=== PATIENT | male | born 1950 | race Caucasian/White ===

== ENCOUNTER 2020-04-08 06:42 | Inpatient (IN) ==
[2020-04-08] MEDS ORDERED: ISOVUE-370 200 ML INFUS..BTL ONE ×2 (07:07→08:54)
[2020-04-08] MEDS ORDERED: Nitroglycerin 1,000 MCG/10 ML VIAL IV ONE (07:07)
[2020-04-08] MEDS ORDERED: 0.9 % Sodium Chloride 1,000 ML ONE (07:07)
[2020-04-08] MEDS ORDERED: *HR* Heparin 10,000 UNIT/10 ML VIAL ONE (07:07)
[2020-04-08] MEDS ORDERED: Heparin 1,000 UNITS/500 mL 500 ML ONE (07:07)
[2020-04-08] MEDS: 0.9 % Sodium Chloride 1,000 ML IVC SCH (07:47)
[2020-04-08] MEDS ORDERED: *HR* FentaNYL (PF) 100 MCG/2 ML VIAL ONE (08:00)
[2020-04-08] MEDS ORDERED: *HR* Midazolam HCl 2 MG/2 ML VIAL ONE (08:00)
[2020-04-08] MEDS ORDERED: *HR* Atropine Sulfate 1 MG/10 ML SYRINGE ONE (11:20)
[2020-04-08] MEDS ORDERED: Ondansetron 4 MG/2 ML VIAL ONE (11:38)
[2020-04-08] MEDS: Ondansetron 4 MG/2 ML VIAL IVP ONE ×2 (11:40→11:46)
[2020-04-08] MEDS ORDERED: Acetaminophen 325 MG TABLET PO PRN (11:40)
[2020-04-08] MEDS ORDERED: Ondansetron 4 MG/2 ML VIAL IVP PRN (11:43)
[2020-04-08] MEDS ORDERED: Adenosine 90 MG/30 ML MLS IV ONE (11:48)
[2020-04-08] MEDS ORDERED: *HR* Heparin 5,000 UNIT/ML VIAL IVP PRN ×2 (12:02)
[2020-04-08] MEDS ORDERED: *HR* Heparin 5,000 UNIT/ML VIAL IVP ONE (12:02)
[2020-04-08 13:45] LABS: Hematocrit 44.2 % (37.5-50.1); Hemoglobin 14.8 g/dL (12.9-16.9); Mean Corpuscular HGB Conc 33.5 g/dL (31.6-35.5); Mean Corpuscular Volume 92.5 fL (83.0-100.0); Mean Platelet Volume 10.2 fL (9.4-12.4); Platelet Count 203 K/mcL (140-400); Red Blood Count 4.78 M/mcL (4.19-5.50); White Blood Count 7.5 K/mcL (4.3-11.1)
[2020-04-08 13:57] LABS: Heparin anti-factor XA UFH < 0.04 IU/mL (0.30-0.70); INR 1.1; Prothrombin Time 12.5 Seconds (9.4-12.1)
[2020-04-08] MEDS: Heparin 25,000UNIT/250ML 1/2NS 25,000 UNIT/250 ML IV.SOLN IVC SCH (14:04)
[2020-04-08] MEDS ORDERED: Isosorbide MONOnitrate (24 HR) 30 MG TAB.ER.24H PO SCH (21:00)
[2020-04-09 06:35] LABS: Basophils % 0.5 %; Eosinophils # 0.1 K/mcL (0.0-0.6); Hematocrit 42.3 % (37.5-50.1); Immature Granulocytes % 0.1 % (0-4); Lymphocytes # 2.5 K/mcL (0.6-4.6); Lymphocytes % 29.4 %; Mean Corpuscular HGB Conc 33.1 g/dL (31.6-35.5); Mean Corpuscular Hemoglobin 30.8 pg (28.0-33.3); Mean Platelet Volume 10.3 fL (9.4-12.4); Monocytes # 0.6 K/mcL (0.0-1.3); Monocytes % 6.5 %; Neutrophils # 5.4 K/mcL (1.6-8.9); Platelet Count 215 K/mcL (140-400); Red Blood Count 4.55 M/mcL (4.19-5.50); Red Cell Distribution Width 13.2 % (11.5-14.5); Segmented Neutrophils % 62.5 %; White Blood Count 8.6 K/mcL (4.3-11.1)
[2020-04-09 06:52] LABS: BUN/Creatinine Ratio 25 (6-26); Blood Urea Nitrogen 21 mg/dL (8-23); Calcium 9.1 mg/dL (8.6-10.3); Carbon Dioxide 23 mEq/L (23-29); Chloride 109 mEq/L (98-107); Glucose 117 mg/dL (70-105); Osmolality,Calculated 300 (280-300); Potassium 3.7 mEq/L (3.5-5.1); Sodium 143 mEq/L (136-145); eGFR For African Americans > 60 (> 60); eGFR For Non-African Americans > 60 (> 60)
[2020-04-09] MEDS: amLODIPine 5 MG TABLET PO SCH (08:12)
[2020-04-09] MEDS: Aspirin Enteric Coated 81 MG Tablet PO SCH (08:12)
[2020-04-09] MEDS: Metoprolol XL (24 HR) Succ 50 MG TAB.ER.24H PO SCH (08:12)
[2020-04-09] MEDS: Losartan/HCTZ 50-12.5 TABLET PO SCH (08:12)
[2020-04-09] MEDS: 0.9 % Sodium Chloride 1,000 ML IVC SCH (08:18)
[2020-04-09] MEDS: Heparin 25,000UNIT/250ML 1/2NS 25,000 UNIT/250 ML IV.SOLN IVC SCH (12:58)
[2020-04-09 16:36] LABS: Chol/HDL Ratio 5.1 (0-4.9)
[2020-04-09 17:39] LABS: Estimated Average Glucose 131 mg/dl; Hemoglobin A1C 6.2 %
[2020-04-09] MEDS ORDERED: Ipratropium/Albuterol Neb 3 ML IH PRN (18:50)
[2020-04-09] MEDS ORDERED: Nitroglycerin 0.4 MG TAB.SUBL SL PRN (18:51)
[2020-04-09] MEDS ORDERED: Melatonin 3 MG TABLET PO PRN (18:51)
[2020-04-09] MEDS: Isosorbide MONOnitrate (24 HR) 60 MG TAB.ER.24H PO SCH (19:51)
[2020-04-10 03:31] LABS: Hemoglobin 13.4 g/dL (12.9-16.9); Mean Corpuscular HGB Conc 33.5 g/dL (31.6-35.5); Mean Corpuscular Hemoglobin 30.9 pg (28.0-33.3); Mean Corpuscular Volume 92.2 fL (83.0-100.0); Mean Platelet Volume 10.6 fL (9.4-12.4); Platelet Count 201 K/mcL (140-400); Red Blood Count 4.34 M/mcL (4.19-5.50); White Blood Count 7.7 K/mcL (4.3-11.1)
[2020-04-10 03:43] LABS: BUN/Creatinine Ratio 27 (6-26); Blood Urea Nitrogen 21 mg/dL (8-23); Calcium 8.9 mg/dL (8.6-10.3); Carbon Dioxide 24 mEq/L (23-29); Chloride 107 mEq/L (98-107); Glucose 108 mg/dL (70-105); Magnesium 2.1 mg/dL (1.6-2.6); Osmolality,Calculated 298 (280-300); Phosphorous 2.9 mg/dL (2.7-4.5); Potassium 3.5 mEq/L (3.5-5.1); Sodium 142 mEq/L (136-145); eGFR For African Americans > 60 (> 60); eGFR For Non-African Americans > 60 (> 60)
[2020-04-10 03:56] LABS: Thyroid Stimulating Hormone 1.461 mcIU/mL (0.340-5.600)
[2020-04-10] MEDS: amLODIPine 5 MG TABLET PO SCH (08:15)
[2020-04-10] MEDS: Metoprolol XL (24 HR) Succ 50 MG TAB.ER.24H PO SCH (08:15)
[2020-04-10] MEDS: Aspirin Enteric Coated 81 MG Tablet PO SCH (08:15)
[2020-04-10] MEDS: Multivit/Ca/Min/Fe/FA 1 TAB TABLET PO SCH (08:15)
[2020-04-10] MEDS: Losartan/HCTZ 50-12.5 TABLET PO SCH (08:15)
[2020-04-10] MEDS: Heparin 25,000UNIT/250ML 1/2NS 25,000 UNIT/250 ML IV.SOLN IVC SCH (12:24)
[2020-04-10 16:02] LABS: Bilirubin,Urine Negative (Negative); Blood,Urine Negative (Negative); Clarity,Urine Clear (Clear); Color,Urine Yellow (Yellow); Glucose,Urine (UA) Normal (Normal); Ketones,Urine Negative (Negative); Leukocyte Esterase,Urine Negative (Negative); Nitrite,Urine Negative (Negative); PH,Urine 5.5 pH Units (5.0-8.0); Protein,Urine Trace mg/dL (Neg-Trace); Specific Gravity,Urine 1.029 (1.010-1.025)
[2020-04-10] MEDS: Isosorbide MONOnitrate (24 HR) 60 MG TAB.ER.24H PO SCH (20:02)
[2020-04-11] MEDS: Multivit/Ca/Min/Fe/FA 1 TAB TABLET PO SCH (08:27)
[2020-04-11] MEDS: Losartan/HCTZ 50-12.5 TABLET PO SCH (08:27)
[2020-04-11] MEDS: amLODIPine 5 MG TABLET PO SCH (08:28)
[2020-04-11] MEDS: Metoprolol XL (24 HR) Succ 50 MG TAB.ER.24H PO SCH (08:28)
[2020-04-11] MEDS: Aspirin Enteric Coated 81 MG Tablet PO SCH (08:28)
[2020-04-11] MEDS: Heparin 25,000UNIT/250ML 1/2NS 25,000 UNIT/250 ML IV.SOLN IVC SCH (09:58)
[2020-04-11] MEDS: hydrALAZINE 25 MG TABLET PO SCH (15:15)
[2020-04-11] MEDS: Isosorbide MONOnitrate (24 HR) 60 MG TAB.ER.24H PO SCH (20:04)
[2020-04-12] MEDS: hydrALAZINE 25 MG TABLET PO SCH ×3 (00:35→16:04)
[2020-04-12] MEDS: Multivit/Ca/Min/Fe/FA 1 TAB TABLET PO SCH (08:10)
[2020-04-12] MEDS: amLODIPine 5 MG TABLET PO SCH (08:10)
[2020-04-12] MEDS: Metoprolol XL (24 HR) Succ 50 MG TAB.ER.24H PO SCH (08:10)
[2020-04-12] MEDS: Aspirin Enteric Coated 81 MG Tablet PO SCH (08:11)
[2020-04-12] MEDS: Losartan/HCTZ 50-12.5 TABLET PO SCH (08:11)
[2020-04-12] MEDS: Heparin 25,000UNIT/250ML 1/2NS 25,000 UNIT/250 ML IV.SOLN IVC SCH (08:29)
[2020-04-12] MEDS: Chlorhexidine Rinse 15 ML MOUTHWASH MM SCH (21:00)
[2020-04-12] MEDS: Isosorbide MONOnitrate (24 HR) 60 MG TAB.ER.24H PO SCH (21:33)
[2020-04-13] MEDS: hydrALAZINE 25 MG TABLET PO SCH ×2 (00:16→12:34)
[2020-04-13 05:16] LABS: Influenza A PCR Negative (Negative); Influenza B PCR Negative (Negative); Resp. Syncytial Virus PCR Negative (Negative)
[2020-04-13 05:17] LABS: SARS-CoV-2 by PCR (In House) Negative (Negative)
[2020-04-13] MEDS: Chlorhexidine Rinse 15 ML MOUTHWASH MM SCH ×2 (06:13→19:56)
[2020-04-13] MEDS: Metoprolol XL (24 HR) Succ 50 MG TAB.ER.24H PO SCH (06:19)
[2020-04-13] MEDS ORDERED: NiCARdipine 2.5 MG/10 ML Syringe IVPB ONE (06:33)
[2020-04-13] MEDS ORDERED: *HR* Midazolam HCl 5 MG/5 ML VIAL IVP ONE (06:44)
[2020-04-13] MEDS ORDERED: *HR* FentaNYL (PF) 1,000 MCG/20 ML VIAL ONE (06:44)
[2020-04-13] MEDS ORDERED: *HR* PHENYLEPHRINE 1,000 MCG/10 ML SYRINGE IVP ONE (06:45)
[2020-04-13] MEDS ORDERED: *HR* Rocuronium Bromide 50 MG/5 ML VIAL ONE ×2 (06:45→10:56)
[2020-04-13] MEDS ORDERED: *HR* Etomidate 20 MG/10 ML AMPUL IVP ONE (06:46)
[2020-04-13] MEDS ORDERED: EPINEPHrine 1 MG/ML VIAL ONE (06:46)
[2020-04-13] MEDS ORDERED: Famotidine 20 MG/2 ML VIAL ONE (06:46)
[2020-04-13] MEDS ORDERED: Protamine Sulfate 250 MG/25 ML VIAL IVP ONE (06:48)
[2020-04-13] MEDS ORDERED: Calcium Gluconate 1,000 MG/10 ML VIAL ONE (06:48)
[2020-04-13] MEDS ORDERED: Tranexamic Acid 1,000 MG/10 ML VIAL ONE ×2 (06:48→09:29)
[2020-04-13] MEDS ORDERED: Dextrose 50 % in Water (Vial) 30 ML, Sodium Bicarbonate 20 MEQ, Potassium Chloride 15 M... TH ONE (07:45)
[2020-04-13] MEDS ORDERED: Norepinephrine 4 MG in 0.9 % Sodium Chloride 250 ML IVC PRN (07:45)
[2020-04-13] MEDS ORDERED: Dextrose 50 % in Water (Vial) 30 ML, Sodium Bicarbonate 20 MEQ, Lidocaine 1% 5 ML, Insu... TH ONE ×3 (07:45)
[2020-04-13] MEDS ORDERED: Insulin Human Regular 100 UNIT in 0.9 % Sodium Chloride 100 ML IV PRN (07:45)
[2020-04-13] MEDS ORDERED: Heparin 15,000 UNIT in 0.9 % Sodium Chloride 500 ML IV ONE (07:45)
[2020-04-13 08:14] LABS: ABG Base Excess -2 mEq/L (-2 to 3); ABG Chloride 106 mEq/L (98-107); ABG Glucose 113 mg/dL (60-95); ABG HCO3 23 mEq/L (21-27); ABG Ionized Calcium 1.21 mmol/L (1.15-1.35); ABG Oxygen Saturation 100 % (95-98); ABG PCO2 40 mmHg (35-45); ABG PH 7.37 pH Units (7.32-7.45); ABG PO2 186 mmHg (85-104); ABG TCO2 24 mEq/L (20-26)
[2020-04-13 09:25] LABS: ABG Base Excess -4 mEq/L (-2 to 3); ABG Chloride 109 mEq/L (98-107); ABG Glucose 119 mg/dL (60-95); ABG HCO3 23 mEq/L (21-27); ABG Ionized Calcium 1.09 mmol/L (1.15-1.35); ABG Oxygen Saturation 98 % (95-98); ABG PCO2 49 mmHg (35-45); ABG PH 7.29 pH Units (7.32-7.45); ABG PO2 125 mmHg (85-104); ABG TCO2 25 mEq/L (20-26)
[2020-04-13] MEDS ORDERED: Albumin Human 5% 12.5 GM/250 ML IV.SOLN ONE (09:35)
[2020-04-13 09:56] LABS: ABG Base Excess -4 mEq/L (-2 to 3); ABG Chloride 100 mEq/L (98-107); ABG Glucose 213 mg/dL (60-95); ABG HCO3 22 mEq/L (21-27); ABG Ionized Calcium 0.92 mmol/L (1.15-1.35); ABG PCO2 43 mmHg (35-45); ABG PH 7.32 pH Units (7.32-7.45); ABG PO2 > 630 mmHg (85-104); ABG TCO2 24 mEq/L (20-26)
[2020-04-13 10:30] LABS: ABG Base Excess -2 mEq/L (-2 to 3); ABG Chloride 101 mEq/L (98-107); ABG Glucose 180 mg/dL (60-95); ABG HCO3 23 mEq/L (21-27); ABG PCO2 39 mmHg (35-45); ABG PH 7.38 pH Units (7.32-7.45); ABG PO2 > 630 mmHg (85-104); ABG TCO2 24 mEq/L (20-26)
[2020-04-13 10:54] LABS: ABG Base Excess -3 mEq/L (-2 to 3); ABG Chloride 103 mEq/L (98-107); ABG Glucose 147 mg/dL (60-95); ABG HCO3 23 mEq/L (21-27); ABG Ionized Calcium 1.05 mmol/L (1.15-1.35); ABG Oxygen Saturation 100 % (95-98); ABG PCO2 41 mmHg (35-45); ABG PH 7.35 pH Units (7.32-7.45); ABG PO2 520 mmHg (85-104); ABG TCO2 24 mEq/L (20-26)
[2020-04-13] MEDS ORDERED: CeFAZolin Syr 2,000MG/20 ML 2,000 MG/20 ML SYRINGE IVPB ONE (11:00)
[2020-04-13 11:23] LABS: ABG Base Excess -4 mEq/L (-2 to 3); ABG Chloride 105 mEq/L (98-107); ABG Glucose 129 mg/dL (60-95); ABG HCO3 23 mEq/L (21-27); ABG Ionized Calcium 1.35 mmol/L (1.15-1.35); ABG Oxygen Saturation 97 % (95-98); ABG PCO2 48 mmHg (35-45); ABG PH 7.28 pH Units (7.32-7.45); ABG PO2 102 mmHg (85-104); ABG TCO2 24 mEq/L (20-26)
[2020-04-13] MEDS ORDERED: *HR* Dextrose 50 % in Water (Vial) 50 ML VIAL IVP PRN (11:29)
[2020-04-13] MEDS ORDERED: Potassium Chloride 40 MEQ/200 ML BAG IVPB PRN (11:29)
[2020-04-13] MEDS ORDERED: Insulin Regular, Human 100 UNIT/ML IV PRN (11:29)
[2020-04-13] MEDS ORDERED: Acetaminophen 650 MG RECTAL SUPP RC PRN (11:31)
[2020-04-13] MEDS: Norepinephrine 4 MG/254 ML IV.SOLN IVC SCH (12:00)
[2020-04-13] MEDS: Albumin Human 5% 12.5 GM/250 ML IV.SOLN IVPB PRN ×3 (12:00→12:46)
[2020-04-13 12:23] LABS: ABG Base Excess -2 mEq/L (-2 to 3); ABG HCO3 25 mEq/L (21-27); ABG Oxygen Saturation 96 % (95-98); ABG PCO2 50 mmHg (35-45); ABG PO2 95 mmHg (85-104); ABG TCO2 26 mEq/L (20-26); Blood Gas Modality ASSIST CONTROL; Blood Gas VT 650 cc
[2020-04-13 12:27] LABS: Basophils % 0.2 %; Eosinophils # 0.1 K/mcL (0.0-0.6); Eosinophils % 0.8 %; Hematocrit 32.8 % (37.5-50.1); Immature Granulocytes % 1.2 % (0-4); Lymphocytes # 1.8 K/mcL (0.6-4.6); Lymphocytes % 11.8 %; Mean Corpuscular HGB Conc 33.8 g/dL (31.6-35.5); Mean Corpuscular Hemoglobin 31.4 pg (28.0-33.3); Mean Corpuscular Volume 92.9 fL (83.0-100.0); Mean Platelet Volume 10.6 fL (9.4-12.4); Monocytes % 4.3 %; Neutrophils # 12.3 K/mcL (1.6-8.9); Platelet Count 105 K/mcL (140-400); Red Blood Count 3.53 M/mcL (4.19-5.50); Segmented Neutrophils % 81.7 %
[2020-04-13 12:28] LABS: Hemoglobin 11.1 g/dL (12.9-16.9); Monocytes # 0.7 K/mcL (0.0-1.3)
[2020-04-13] MEDS ORDERED: Albumin Human 5% 25.0 GM/500 ML IV.SOLN ONE (12:33)
[2020-04-13 12:34] LABS: INR 1.5; Prothrombin Time 17.3 Seconds (9.4-12.1)
[2020-04-13] MEDS: amLODIPine 5 MG TABLET PO SCH (12:34)
[2020-04-13] MEDS: Aspirin Enteric Coated 81 MG Tablet PO SCH (12:34)
[2020-04-13] MEDS: Losartan/HCTZ 50-12.5 TABLET PO SCH (12:35)
[2020-04-13] MEDS: Multivit/Ca/Min/Fe/FA 1 TAB TABLET PO SCH (12:36)
[2020-04-13 12:37] LABS: Activated Partial Thrombo Time 27.7 Seconds (26.0-36.0)
[2020-04-13 12:42] LABS: BUN/Creatinine Ratio 19 (6-26); Blood Urea Nitrogen 16 mg/dL (8-23); Calcium 8.5 mg/dL (8.6-10.3); Carbon Dioxide 25 mEq/L (23-29); Chloride 109 mEq/L (98-107); Glucose 87 mg/dL (70-105); Magnesium 2.6 mg/dL (1.6-2.6); Osmolality,Calculated 289 (280-300); Potassium 3.7 mEq/L (3.5-5.1); Sodium 139 mEq/L (136-145); eGFR For African Americans > 60 (> 60); eGFR For Non-African Americans > 60 (> 60)
[2020-04-13] MEDS ORDERED: *HR* Dextrose 50 % in Water (Vial) 50 ML VIAL ONE (12:58)
[2020-04-13] MEDS ORDERED: Calcium Gluconate 1gm/50mL 1 GM/50 ML BAG IVPB PRN (13:22)
[2020-04-13] MEDS: Insulin Human Regular 100 UNIT in 0.9 % Sodium Chloride 100 ML IVC SCH ×2 (13:23→15:00)
[2020-04-13] MEDS: niCARdipine 20 MG/200 ML MLS IVC SCH ×5 (13:24→22:54)
[2020-04-13] MEDS: 0.9 % Sodium Chloride w KCl 20 MEQ/1,000 ML MLS IVC SCH (13:31)
[2020-04-13] MEDS: Pantoprazole 40 MG VIAL IVP SCH (13:32)
[2020-04-13] MEDS: *HR* FentaNYL (PF) 100 MCG/2 ML VIAL IVP PRN ×3 (13:32→18:47)
[2020-04-13] MEDS: *HR* OxyCODONE/APAP 5/325 TABLET PO PRN ×2 (13:32→23:00)
[2020-04-13] MEDS: Metoclopramide 10 MG/2 ML VIAL IVP SCH ×3 (13:32→23:00)
[2020-04-13] MEDS: CeFAZolin 2 GM/120 ML BAG IVPB SCH ×2 (15:09→23:00)
[2020-04-13] MEDS ORDERED: Amiodarone Premix 360 MG/200 ML BAG IVC ONE (15:15)
[2020-04-13] MEDS ORDERED: Amiodarone Premix 150 MG/100 ML BAG IVPB ONE (15:15)
[2020-04-13 16:30] LABS: ABG Base Excess -4 mEq/L (-2 to 3); ABG HCO3 22 mEq/L (21-27); ABG Oxygen Saturation 89 % (95-98); ABG PCO2 46 mmHg (35-45); ABG PO2 62 mmHg (85-104); ABG TCO2 24 mEq/L (20-26); Blood Gas Modality CPAP/PS; Blood Gas Pressure Support 5 cm H2O
[2020-04-13] MEDS ORDERED: Tranexamic Acid 1,000 MG/10 ML VIAL IR ONE (16:36)
[2020-04-13] MEDS ORDERED: *HR* Magnesium Sulfate 2 GM/50 ML PIGGYBACK IVPB ONE (16:36)
[2020-04-13] MEDS ORDERED: Mannitol 25% vial 12.5 GM/50 ML VIAL IVPB ONE (16:36)
[2020-04-13] MEDS ORDERED: Albumin Human 25% 25 GM/100 ML IV.SOLN IVPB ONE (16:36)
[2020-04-13] MEDS ORDERED: Lidocaine 2% Syringe 100 MG/5 ML IVP ONE (16:36)
[2020-04-13] MEDS ORDERED: *HR* Heparin 10,000 UNIT/10 ML VIAL IR ONE (16:36)
[2020-04-13] MEDS ORDERED: *HR* Phenylephrine 10 MG/ML VIAL IVC ONE (16:36)
[2020-04-13] MEDS: Amiodarone Premix 360 MG/200 ML BAG IVC SCH (21:16)
[2020-04-14] MEDS: *HR* FentaNYL (PF) 100 MCG/2 ML VIAL IVP PRN ×4 (00:21→10:17)
[2020-04-14] MEDS: niCARdipine 20 MG/200 ML MLS IVC SCH ×6 (01:49→10:17)
[2020-04-14 03:16] LABS: Basophils % 0.1 %; Eosinophils % 0.1 %; Hemoglobin 11.1 g/dL (12.9-16.9); Immature Granulocytes % 0.4 % (0-4); Lymphocytes # 1.3 K/mcL (0.6-4.6); Lymphocytes % 8.9 %; Mean Corpuscular HGB Conc 33.6 g/dL (31.6-35.5); Mean Corpuscular Hemoglobin 31.1 pg (28.0-33.3); Mean Corpuscular Volume 92.4 fL (83.0-100.0); Mean Platelet Volume 10.3 fL (9.4-12.4); Monocytes # 1.3 K/mcL (0.0-1.3); Neutrophils # 11.6 K/mcL (1.6-8.9); Platelet Count 124 K/mcL (140-400); Red Blood Count 3.57 M/mcL (4.19-5.50); Red Cell Distribution Width 13.2 % (11.5-14.5); Segmented Neutrophils % 81.5 %; White Blood Count 14.2 K/mcL (4.3-11.1)
[2020-04-14 03:33] LABS: INR 1.2; Prothrombin Time 13.5 Seconds (9.4-12.1)
[2020-04-14 03:34] LABS: BUN/Creatinine Ratio 22 (6-26); Blood Urea Nitrogen 19 mg/dL (8-23); Calcium 8.3 mg/dL (8.6-10.3); Carbon Dioxide 20 mEq/L (23-29); Chloride 110 mEq/L (98-107); Glucose 151 mg/dL (70-105); Magnesium 2.1 mg/dL (1.6-2.6); Osmolality,Calculated 293 (280-300); Potassium 4.2 mEq/L (3.5-5.1); Sodium 139 mEq/L (136-145); eGFR For African Americans > 60 (> 60); eGFR For Non-African Americans > 60 (> 60)
[2020-04-14 03:36] LABS: Activated Partial Thrombo Time 25.6 Seconds (26.0-36.0)
[2020-04-14 05:03] LABS: ABG Base Excess -3 mEq/L (-2 to 3); ABG HCO3 23 mEq/L (21-27); ABG Oxygen Saturation 93 % (95-98); ABG PCO2 41 mmHg (35-45); ABG PH 7.35 pH Units (7.32-7.45); ABG PO2 69 mmHg (85-104); ABG TCO2 24 mEq/L (20-26)
[2020-04-14] MEDS: Metoclopramide 10 MG/2 ML VIAL IVP SCH ×4 (05:03→23:27)
[2020-04-14] MEDS: 0.9 % Sodium Chloride w KCl 20 MEQ/1,000 ML MLS IVC SCH (06:57)
[2020-04-14] MEDS ORDERED: *HR* Dextrose 50 % in Water (Vial) 50 ML VIAL IVP PRN (07:21)
[2020-04-14] MEDS ORDERED: D5% in Water 1,000 ML IVC PRN (07:21)
[2020-04-14] MEDS ORDERED: Dextrose Gel 15 GM/37.5 ML TUBE PO PRN ×2 (07:21)
[2020-04-14] MEDS: Insulin LISPRO 300 UNITS/3 ML VIAL SUBQ SCH ×4 (07:36→19:48)
[2020-04-14] MEDS ORDERED: Furosemide 20 MG/2 ML VIAL IVP ONE (07:37)
[2020-04-14] MEDS: Amiodarone Premix 360 MG/200 ML BAG IVC SCH ×3 (08:32→19:53)
[2020-04-14] MEDS ORDERED: Furosemide 20 MG/2 ML VIAL IVP SCH (09:00)
[2020-04-14] MEDS: Pantoprazole 40 MG VIAL IVP SCH (09:09)
[2020-04-14] MEDS: Multivit/Ca/Min/Fe/FA 1 TAB TABLET PO SCH (09:09)
[2020-04-14] MEDS: *HR* OxyCODONE/APAP 5/325 TABLET PO PRN ×3 (09:09→20:15)
[2020-04-14] MEDS: Chlorhexidine Rinse 15 ML MOUTHWASH MM SCH ×2 (09:09→19:54)
[2020-04-14] MEDS: Losartan/HCTZ 50-12.5 TABLET PO SCH (09:09)
[2020-04-14] MEDS: Aspirin Enteric Coated 81 MG Tablet PO SCH (09:09)
[2020-04-14] MEDS: Norepinephrine 4 MG/254 ML IV.SOLN IVC SCH (10:17)
[2020-04-14] MEDS ORDERED: Heparin 1,000 UNITS/500 mL 500 ML ONE (12:03)
[2020-04-14] MEDS ORDERED: Furosemide 40 MG/4 ML VIAL IVP ONE (13:55)
[2020-04-14] MEDS ORDERED: Furosemide 40 MG TABLET PO SCH (17:00)
[2020-04-14] MEDS: Furosemide 40 MG TABLET PO SCH (19:54)
[2020-04-15] MEDS: 0.9 % Sodium Chloride w KCl 20 MEQ/1,000 ML MLS IVC SCH (02:40)
[2020-04-15 03:44] LABS: Basophils % 0.1 %; Eosinophils % 0.1 %; Hematocrit 31.3 % (37.5-50.1); Hemoglobin 10.4 g/dL (12.9-16.9); Immature Granulocytes % 0.5 % (0-4); Lymphocytes # 1.6 K/mcL (0.6-4.6); Lymphocytes % 10.3 %; Mean Corpuscular HGB Conc 33.2 g/dL (31.6-35.5); Mean Corpuscular Hemoglobin 30.6 pg (28.0-33.3); Mean Corpuscular Volume 92.1 fL (83.0-100.0); Mean Platelet Volume 10.6 fL (9.4-12.4); Monocytes # 1.7 K/mcL (0.0-1.3); Monocytes % 10.7 %; Platelet Count 112 K/mcL (140-400); Red Cell Distribution Width 13.5 % (11.5-14.5); Segmented Neutrophils % 78.3 %; White Blood Count 15.4 K/mcL (4.3-11.1)
[2020-04-15 04:02] LABS: BUN/Creatinine Ratio 27 (6-26); Blood Urea Nitrogen 22 mg/dL (8-23); Calcium 8.4 mg/dL (8.6-10.3); Carbon Dioxide 22 mEq/L (23-29); Chloride 105 mEq/L (98-107); Glucose 159 mg/dL (70-105); Osmolality,Calculated 287 (280-300); Potassium 3.5 mEq/L (3.5-5.1); Sodium 135 mEq/L (136-145); eGFR For African Americans > 60 (> 60); eGFR For Non-African Americans > 60 (> 60)
[2020-04-15] MEDS: Metoclopramide 10 MG/2 ML VIAL IVP SCH ×4 (04:58→23:21)
[2020-04-15] MEDS: *HR* OxyCODONE/APAP 5/325 TABLET PO PRN ×3 (05:57→20:01)
[2020-04-15] MEDS: Amiodarone Premix 360 MG/200 ML BAG IVC SCH ×2 (05:58→17:18)
[2020-04-15 06:30] LABS: Magnesium 2.1 mg/dL (1.6-2.6); Phosphorous 2.2 mg/dL (2.7-4.5)
[2020-04-15] MEDS ORDERED: Amiodarone Premix 360 MG/200 ML BAG IVC SCH ×3 (07:17→13:49)
[2020-04-15] MEDS: Pantoprazole 40 MG VIAL IVP SCH (07:44)
[2020-04-15] MEDS: amLODIPine 5 MG TABLET PO SCH (07:44)
[2020-04-15] MEDS: Multivit/Ca/Min/Fe/FA 1 TAB TABLET PO SCH (07:45)
[2020-04-15] MEDS: Furosemide 40 MG TABLET PO SCH (07:45)
[2020-04-15] MEDS: Chlorhexidine Rinse 15 ML MOUTHWASH MM SCH ×2 (07:45→20:01)
[2020-04-15] MEDS: Losartan/HCTZ 50-12.5 TABLET PO SCH (07:45)
[2020-04-15] MEDS: Aspirin Enteric Coated 81 MG Tablet PO SCH (07:45)
[2020-04-15] MEDS: Insulin LISPRO 300 UNITS/3 ML VIAL SUBQ SCH ×4 (07:48→20:01)
[2020-04-15] MEDS: niCARdipine 20 MG/200 ML MLS IVC SCH ×6 (07:52→23:35)
[2020-04-15 07:59] LABS: ABG Base Excess -1 mEq/L (-2 to 3); ABG HCO3 23 mEq/L (21-27); ABG Oxygen Saturation 93 % (95-98); ABG PCO2 34 mmHg (35-45); ABG PH 7.44 pH Units (7.32-7.45); ABG PO2 63 mmHg (85-104); ABG TCO2 24 mEq/L (20-26)
[2020-04-15] MEDS: Norepinephrine 4 MG/254 ML IV.SOLN IVC SCH (12:14)
[2020-04-15 13:47] LABS: BUN/Creatinine Ratio 30 (6-26); Blood Urea Nitrogen 25 mg/dL (8-23); Calcium 8.6 mg/dL (8.6-10.3); Carbon Dioxide 23 mEq/L (23-29); Chloride 105 mEq/L (98-107); Glucose 172 mg/dL (70-105); Magnesium 2.3 mg/dL (1.6-2.6); Osmolality,Calculated 288 (280-300); Phosphorous 2.2 mg/dL (2.7-4.5); Potassium 3.8 mEq/L (3.5-5.1); Sodium 135 mEq/L (136-145); eGFR For African Americans > 60 (> 60); eGFR For Non-African Americans > 60 (> 60)
[2020-04-15] MEDS: Piperacillin/Tazobactam 3.375 GM in 0.9 % Sodium Chloride Mini Bag 100 ML IVPB SCH ×2 (14:47→23:21)
[2020-04-15 15:01] LABS: Mucus,Urine Few per lpf (None-Few); RBC,Urine TNTC per hpf (0-3); WBC,Urine 15-30 per hpf (0-3)
[2020-04-15 15:06] LABS: Bilirubin,Urine Negative (Negative); Blood,Urine Moderate (Negative); Clarity,Urine Clear (Clear); Color,Urine Yellow (Yellow); Glucose,Urine (UA) Normal (Normal); Ketones,Urine Negative (Negative); Leukocyte Esterase,Urine Negative (Negative); Nitrite,Urine Negative (Negative); Protein,Urine 30 mg/dL (Neg-Trace); Renal Epithelial Cells,Urine Few per hpf (None-Few); Specific Gravity,Urine 1.028 (1.010-1.025); Squamous Epithelial Cell,Urine Few per hpf (None-Few); Transitional Epi Cells,Urine Moderate per hpf (None-Few); Urobilinogen,Urine Normal (Normal)
[2020-04-15] MEDS: Doxycycline 100 MG in 0.9 % Sodium Chloride Mini Bag 100 ML IVPB SCH (17:13)
[2020-04-15] MEDS: *HR* Heparin 5,000 UNIT/ML VIAL SQ SCH (17:17)
[2020-04-15] MEDS: Furosemide 40 MG/4 ML VIAL IVP SCH (17:18)
[2020-04-16] MEDS: *HR* OxyCODONE/APAP 5/325 TABLET PO PRN ×4 (00:06→15:14)
[2020-04-16] MEDS: Amiodarone Premix 360 MG/200 ML BAG IVC SCH ×2 (00:21→06:25)
[2020-04-16 04:03] LABS: Basophils % 0.1 %; Eosinophils % 0.3 %; Hemoglobin 10.2 g/dL (12.9-16.9); Immature Granulocytes % 0.4 % (0-4); Lymphocytes % 14.2 %; Mean Corpuscular Hemoglobin 31.1 pg (28.0-33.3); Mean Corpuscular Volume 91.5 fL (83.0-100.0); Mean Platelet Volume 11.4 fL (9.4-12.4); Monocytes # 1.4 K/mcL (0.0-1.3); Monocytes % 9.8 %; Neutrophils # 10.6 K/mcL (1.6-8.9); Platelet Count 133 K/mcL (140-400); Red Blood Count 3.28 M/mcL (4.19-5.50); Red Cell Distribution Width 13.5 % (11.5-14.5); Segmented Neutrophils % 75.2 %
[2020-04-16 04:16] LABS: Magnesium 2.3 mg/dL (1.6-2.6); Phosphorous 2.5 mg/dL (2.7-4.5)
[2020-04-16 04:17] LABS: BUN/Creatinine Ratio 32 (6-26); Blood Urea Nitrogen 26 mg/dL (8-23); Calcium 8.4 mg/dL (8.6-10.3); Carbon Dioxide 23 mEq/L (23-29); Chloride 104 mEq/L (98-107); Glucose 158 mg/dL (70-105); Osmolality,Calculated 290 (280-300); Potassium 3.3 mEq/L (3.5-5.1); Sodium 136 mEq/L (136-145); eGFR For African Americans > 60 (> 60); eGFR For Non-African Americans > 60 (> 60)
[2020-04-16] MEDS: Metoclopramide 10 MG/2 ML VIAL IVP SCH ×2 (05:20→12:46)
[2020-04-16] MEDS: *HR* Heparin 5,000 UNIT/ML VIAL SQ SCH ×2 (05:20→17:09)
[2020-04-16] MEDS: Doxycycline 100 MG in 0.9 % Sodium Chloride Mini Bag 100 ML IVPB SCH ×2 (05:20→17:10)
[2020-04-16] MEDS: Piperacillin/Tazobactam 3.375 GM in 0.9 % Sodium Chloride Mini Bag 100 ML IVPB SCH ×3 (06:25→23:35)
[2020-04-16] MEDS: Aspirin Enteric Coated 81 MG Tablet PO SCH (07:58)
[2020-04-16] MEDS: Losartan/HCTZ 50-12.5 TABLET PO SCH (07:58)
[2020-04-16] MEDS: Insulin LISPRO 300 UNITS/3 ML VIAL SUBQ SCH ×4 (07:58→20:01)
[2020-04-16] MEDS: Pantoprazole 40 MG VIAL IVP SCH (07:58)
[2020-04-16] MEDS: amLODIPine 5 MG TABLET PO SCH (07:58)
[2020-04-16] MEDS: Furosemide 40 MG/4 ML VIAL IVP SCH ×2 (07:58→17:09)
[2020-04-16] MEDS: Multivit/Ca/Min/Fe/FA 1 TAB TABLET PO SCH (07:58)
[2020-04-16] MEDS: Chlorhexidine Rinse 15 ML MOUTHWASH MM SCH ×2 (07:58→20:00)
[2020-04-16] MEDS: niCARdipine 20 MG/200 ML MLS IVC SCH ×5 (09:12→20:42)
[2020-04-16] MEDS ORDERED: Potassium Phosphate 44 MEQ in 0.9 % Sodium Chloride 250 ML IVPB ONE (09:34)
[2020-04-16] MEDS: *HR* Amiodarone 200 MG TABLET PO SCH (10:50)
[2020-04-16] MEDS: Norepinephrine 4 MG/254 ML IV.SOLN IVC SCH (12:46)
[2020-04-16 13:27] LABS: VBG Ionized Calcium 1.08 mmol/L (1.15-1.35)
[2020-04-16 13:28] LABS: VBG Ionized Calcium 1.05 mmol/L (1.15-1.35)
[2020-04-16 17:03] LABS: Potassium 3.1 mEq/L (3.5-5.1)
[2020-04-16 17:13] LABS: Phosphorous 2.1 mg/dL (2.7-4.5)
[2020-04-17] MEDS: niCARdipine 20 MG/200 ML MLS IVC SCH ×3 (02:44→11:44)
[2020-04-17 03:23] LABS: VBG Ionized Calcium 1.09 mmol/L (1.15-1.35)
[2020-04-17 03:24] LABS: Basophils % 0.4 %; Eosinophils % 0.3 %; Hematocrit 31.8 % (37.5-50.1); Hemoglobin 10.4 g/dL (12.9-16.9); Immature Granulocytes % 0.4 % (0-4); Lymphocytes # 1.6 K/mcL (0.6-4.6); Lymphocytes % 16.1 %; Mean Corpuscular HGB Conc 32.7 g/dL (31.6-35.5); Mean Corpuscular Volume 94.9 fL (83.0-100.0); Mean Platelet Volume 11.1 fL (9.4-12.4); Monocytes % 9.8 %; Neutrophils # 7.4 K/mcL (1.6-8.9); Nucleated Red Blood Cells 0.2 /100 WBC (0); Platelet Count 164 K/mcL (140-400); Red Blood Count 3.35 M/mcL (4.19-5.50); Red Cell Distribution Width 13.7 % (11.5-14.5); White Blood Count 10.2 K/mcL (4.3-11.1)
[2020-04-17 03:43] LABS: BUN/Creatinine Ratio 38 (6-26); Blood Urea Nitrogen 24 mg/dL (8-23); Calcium 8.4 mg/dL (8.6-10.3); Carbon Dioxide 26 mEq/L (23-29); Chloride 105 mEq/L (98-107); Glucose 123 mg/dL (70-105); Magnesium 2.4 mg/dL (1.6-2.6); Osmolality,Calculated 291 (280-300); Phosphorous 2.5 mg/dL (2.7-4.5); Potassium 3.6 mEq/L (3.5-5.1); Sodium 138 mEq/L (136-145); eGFR For African Americans > 60 (> 60); eGFR For Non-African Americans > 60 (> 60)
[2020-04-17] MEDS: Doxycycline 100 MG in 0.9 % Sodium Chloride Mini Bag 100 ML IVPB SCH ×2 (04:14→17:27)
[2020-04-17] MEDS: *HR* Heparin 5,000 UNIT/ML VIAL SQ SCH ×2 (04:14→17:25)
[2020-04-17] MEDS: Piperacillin/Tazobactam 3.375 GM in 0.9 % Sodium Chloride Mini Bag 100 ML IVPB SCH ×2 (05:59→17:26)
[2020-04-17] MEDS: Insulin LISPRO 300 UNITS/3 ML VIAL SUBQ SCH ×4 (07:22→22:47)
[2020-04-17] MEDS: Chlorhexidine Rinse 15 ML MOUTHWASH MM SCH ×2 (08:26→22:46)
[2020-04-17] MEDS: amLODIPine 5 MG TABLET PO SCH (08:26)
[2020-04-17] MEDS: Pantoprazole 40 MG VIAL IVP SCH (08:27)
[2020-04-17] MEDS: Losartan/HCTZ 50-12.5 TABLET PO SCH (08:27)
[2020-04-17] MEDS: Multivit/Ca/Min/Fe/FA 1 TAB TABLET PO SCH (08:27)
[2020-04-17] MEDS: Aspirin Enteric Coated 81 MG Tablet PO SCH (08:27)
[2020-04-17] MEDS: *HR* Amiodarone 200 MG TABLET PO SCH (08:27)
[2020-04-17] MEDS: Furosemide 40 MG/4 ML VIAL IVP SCH ×2 (08:28→17:25)
[2020-04-17] MEDS: Norepinephrine 4 MG/254 ML IV.SOLN IVC SCH (11:44)
[2020-04-18] MEDS: Piperacillin/Tazobactam 3.375 GM in 0.9 % Sodium Chloride Mini Bag 100 ML IVPB SCH ×4 (05:02→23:00)
[2020-04-18] MEDS: *HR* Heparin 5,000 UNIT/ML VIAL SQ SCH ×2 (05:03→18:03)
[2020-04-18] MEDS: Doxycycline 100 MG in 0.9 % Sodium Chloride Mini Bag 100 ML IVPB SCH ×2 (05:03→18:04)
[2020-04-18 05:39] LABS: Basophils % 0.3 %; Eosinophils # 0.1 K/mcL (0.0-0.6); Eosinophils % 1.2 %; Hemoglobin 11.1 g/dL (12.9-16.9); Immature Granulocytes % 0.4 % (0-4); Lymphocytes # 2.1 K/mcL (0.6-4.6); Lymphocytes % 18.4 %; Mean Corpuscular HGB Conc 32.6 g/dL (31.6-35.5); Mean Corpuscular Hemoglobin 30.8 pg (28.0-33.3); Mean Corpuscular Volume 94.4 fL (83.0-100.0); Monocytes # 1.1 K/mcL (0.0-1.3); Monocytes % 9.3 %; Neutrophils # 7.9 K/mcL (1.6-8.9); Platelet Count 217 K/mcL (140-400); Red Cell Distribution Width 13.8 % (11.5-14.5); Segmented Neutrophils % 70.4 %; White Blood Count 11.3 K/mcL (4.3-11.1)
[2020-04-18 05:52] LABS: VBG Ionized Calcium 1.06 mmol/L (1.15-1.35)
[2020-04-18 06:08] LABS: BUN/Creatinine Ratio 36 (6-26); Blood Urea Nitrogen 21 mg/dL (8-23); Calcium 8.1 mg/dL (8.6-10.3); Carbon Dioxide 25 mEq/L (23-29); Chloride 108 mEq/L (98-107); Glucose 106 mg/dL (70-105); Magnesium 2.1 mg/dL (1.6-2.6); Osmolality,Calculated 291 (280-300); Phosphorous 2.2 mg/dL (2.7-4.5); Potassium 3.5 mEq/L (3.5-5.1); Sodium 139 mEq/L (136-145); eGFR For African Americans > 60 (> 60); eGFR For Non-African Americans > 60 (> 60)
[2020-04-18] MEDS: niCARdipine 20 MG/200 ML MLS IVC SCH ×4 (07:32→11:17)
[2020-04-18] MEDS: Chlorhexidine Rinse 15 ML MOUTHWASH MM SCH ×2 (08:01→21:33)
[2020-04-18] MEDS: Furosemide 40 MG/4 ML VIAL IVP SCH ×2 (08:01→18:05)
[2020-04-18] MEDS: Pantoprazole 40 MG VIAL IVP SCH (08:01)
[2020-04-18] MEDS: Losartan/HCTZ 50-12.5 TABLET PO SCH (08:02)
[2020-04-18] MEDS: Aspirin Enteric Coated 81 MG Tablet PO SCH (08:03)
[2020-04-18] MEDS: Multivit/Ca/Min/Fe/FA 1 TAB TABLET PO SCH (08:03)
[2020-04-18] MEDS: Insulin LISPRO 300 UNITS/3 ML VIAL SUBQ SCH ×4 (08:03→21:33)
[2020-04-18] MEDS: amLODIPine 5 MG TABLET PO SCH (08:03)
[2020-04-18] MEDS: *HR* Amiodarone 200 MG TABLET PO SCH (08:03)
[2020-04-18] MEDS: Norepinephrine 4 MG/254 ML IV.SOLN IVC SCH (11:17)
[2020-04-19 04:02] LABS: Basophils # 0.1 K/mcL (0.0-0.2); Basophils % 0.4 %; Eosinophils # 0.3 K/mcL (0.0-0.6); Eosinophils % 2.5 %; Hemoglobin 11.8 g/dL (12.9-16.9); Immature Granulocytes % 0.5 % (0-4); Lymphocytes # 2.7 K/mcL (0.6-4.6); Lymphocytes % 23.8 %; Mean Corpuscular HGB Conc 32.8 g/dL (31.6-35.5); Mean Corpuscular Hemoglobin 31.3 pg (28.0-33.3); Mean Corpuscular Volume 95.5 fL (83.0-100.0); Mean Platelet Volume 10.6 fL (9.4-12.4); Monocytes # 1.1 K/mcL (0.0-1.3); Monocytes % 9.5 %; Neutrophils # 7.3 K/mcL (1.6-8.9); Platelet Count 248 K/mcL (140-400); Red Blood Count 3.77 M/mcL (4.19-5.50); Red Cell Distribution Width 13.7 % (11.5-14.5); Segmented Neutrophils % 63.3 %; White Blood Count 11.5 K/mcL (4.3-11.1)
[2020-04-19 04:08] LABS: VBG Ionized Calcium 1.16 mmol/L (1.15-1.35)
[2020-04-19 04:20] LABS: Phosphorous 4.3 mg/dL (2.7-4.5)
[2020-04-19 04:21] LABS: BUN/Creatinine Ratio 31 (6-26); Blood Urea Nitrogen 28 mg/dL (8-23); Calcium 9.2 mg/dL (8.6-10.3); Carbon Dioxide 27 mEq/L (23-29); Chloride 105 mEq/L (98-107); Glucose 120 mg/dL (70-105); Osmolality,Calculated 299 (280-300); Potassium 3.7 mEq/L (3.5-5.1); Sodium 141 mEq/L (136-145); eGFR For African Americans > 60 (> 60); eGFR For Non-African Americans > 60 (> 60)
[2020-04-19] MEDS: Doxycycline 100 MG in 0.9 % Sodium Chloride Mini Bag 100 ML IVPB SCH ×2 (05:57→18:13)
[2020-04-19] MEDS: *HR* Heparin 5,000 UNIT/ML VIAL SQ SCH ×2 (05:58→18:13)
[2020-04-19] MEDS: Insulin LISPRO 300 UNITS/3 ML VIAL SUBQ SCH ×3 (07:13→16:03)
[2020-04-19] MEDS: Multivit/Ca/Min/Fe/FA 1 TAB TABLET PO SCH (07:31)
[2020-04-19] MEDS: Losartan/HCTZ 50-12.5 TABLET PO SCH (07:31)
[2020-04-19] MEDS: Aspirin Enteric Coated 81 MG Tablet PO SCH (07:31)
[2020-04-19] MEDS: *HR* Amiodarone 200 MG TABLET PO SCH (07:31)
[2020-04-19] MEDS: Chlorhexidine Rinse 15 ML MOUTHWASH MM SCH ×2 (07:32→20:55)
[2020-04-19] MEDS: Furosemide 40 MG/4 ML VIAL IVP SCH (07:32)
[2020-04-19] MEDS: amLODIPine 5 MG TABLET PO SCH (07:32)
[2020-04-19] MEDS: Piperacillin/Tazobactam 3.375 GM in 0.9 % Sodium Chloride Mini Bag 100 ML IVPB SCH ×3 (07:46→23:50)
[2020-04-19] MEDS ORDERED: Insulin Regular, Human 100 UNIT/ML IV PRN (12:39)
[2020-04-19] MEDS ORDERED: Ondansetron 4 MG/2 ML VIAL IVP PRN (12:39)
[2020-04-19] MEDS ORDERED: *HR* Dextrose 50 % in Water (Vial) 50 ML VIAL IVP PRN (12:39)
[2020-04-19] MEDS ORDERED: Ipratropium/Albuterol Neb 3 ML IH PRN (12:39)
[2020-04-19] MEDS ORDERED: D5% in Water 1,000 ML IVC PRN (12:39)
[2020-04-19] MEDS ORDERED: *HR* OxyCODONE/APAP 5/325 TABLET PO PRN (12:39)
[2020-04-19] MEDS ORDERED: Melatonin 3 MG TABLET PO PRN (12:39)
[2020-04-19] MEDS ORDERED: Dextrose Gel 15 GM/37.5 ML TUBE PO PRN ×2 (12:39)
[2020-04-19] MEDS ORDERED: Albumin Human 5% 12.5 GM/250 ML IV.SOLN IVPB PRN (12:39)
[2020-04-19] MEDS ORDERED: Acetaminophen 325 MG TABLET PO PRN (12:39)
[2020-04-19] MEDS ORDERED: Insulin LISPRO 300 UNITS/3 ML VIAL SUBQ SCH (21:00)
[2020-04-20] MEDS: *HR* Heparin 5,000 UNIT/ML VIAL SQ SCH (05:42)
[2020-04-20] MEDS: Doxycycline 100 MG in 0.9 % Sodium Chloride Mini Bag 100 ML IVPB SCH (05:42)
[2020-04-20] MEDS: Chlorhexidine Rinse 15 ML MOUTHWASH MM SCH (07:46)
[2020-04-20] MEDS: Insulin LISPRO 300 UNITS/3 ML VIAL SUBQ SCH ×2 (07:46→12:04)
[2020-04-20] MEDS: Piperacillin/Tazobactam 3.375 GM in 0.9 % Sodium Chloride Mini Bag 100 ML IVPB SCH (07:47)
[2020-04-20] MEDS ORDERED: amLODIPine 5 MG TABLET PO SCH (09:00)
[2020-04-20] MEDS ORDERED: *HR* Amiodarone 200 MG TABLET PO SCH (09:00)
[2020-04-20] MEDS ORDERED: Multivit/Ca/Min/Fe/FA 1 TAB TABLET PO SCH (09:00)
[2020-04-20] MEDS ORDERED: Losartan/HCTZ 50-12.5 TABLET PO SCH (09:00)
[2020-04-20] MEDS ORDERED: Aspirin Enteric Coated 81 MG Tablet PO SCH (09:00)
[2020-04-20 11:59] VITALS: BP 126/48
== END 2020-04-20 15:07 | disposition home or self-care (01) | DRG 233 ==
LOC: INVDIALAB 06:42 → 2NNU 06:42 → SUATTDRO 12:24 → ICNU 04-13 09:35 → 2NNU 04-19 15:44
PROVIDERS: ADMIT Internal Medicine Cardiovascular Disease; ATTEND Internal Medicine